=== PATIENT | female | born 1980 | race Caucasian/White ===

== ENCOUNTER 2018-09-07 19:29 | Emergency (ER) | payer BC ==
[~2018-09-07] VITALS: Ht 157.5 cm; Wt 81.6 kg
[2018-09-07 19:35] VITALS: BP_SYST 96
[2018-09-07] MEDS ORDERED: chlorproMAZINE HCL 50 MG/ 2 ML AMP IV ONE (19:45)
[2018-09-07] MEDS ORDERED: NACL 0.9% 1,000 ML IV ONE (19:45)
[2018-09-07] MEDS ORDERED: DIPHENHYDRAMINE INJ 50 MG/ML VIAL IVP ONE (19:45)
[2018-09-07 20:30] VITALS: BP_SYST 108
== END 2018-09-07 20:30 | disposition home or self-care (01) ==
LOC: SED 19:29
DX: G43.909 Migraine, unspecified, not intractable, without status migrainosus (principal); Z90.49 Acquired absence of other specified parts of digestive tract; Z98.51 Tubal ligation status
CPT/HCPCS: 96361; 96374; 96375; 99283; J1200; J3230; J7030